=== PATIENT | male | born 1995 | race Two or more races ===

== ENCOUNTER 2017-04-22 02:50 | Emergency (ER) | payer OTHER ==
[~2017-04-22] VITALS: Ht 177.8 cm; Wt 99.8 kg
[2017-04-22 05:09] VITALS: BP 129/64
== END 2017-04-22 05:09 | disposition home or self-care (01) ==
LOC: ED 02:50
DX: J06.9 Acute upper respiratory infection, unspecified (principal); H92.02 Otalgia, left ear; Z79.1 Long term (current) use of non-steroidal anti-inflammatories (NSAID)